=== PATIENT | male | born 1970 | race Hispanic/Latino ===

== ENCOUNTER 2021-03-14 21:14 | Emergency (ER) | payer OTHER ==
[~2021-03-14] VITALS: Ht 970.3 cm; Wt 23.1 kg
[2021-03-14] MEDS ORDERED: KETOROLAC 15MG/ML VIAL (15MG/ML) IV ONE (23:30)
[2021-03-14 23:38] LABS: BASOPHILS % (AUTO) 0.6 % (0.0-5.0); EOSINOPHILS % (AUTO) 2.2 % (0.0-8.0); HEMATOCRIT 36.4 % (42-54); LYMPHOCYTES % (AUTO) 23.8 % (21.0-51.0); MEAN CORPUSCULAR HEMOGLOBIN 28.2 pg (27.0-33.0); MEAN CORPUSCULAR HGB CONC 32.7 g/dL (32.0-36.0); MEAN CORPUSCULAR VOLUME 86.3 fL (79-99); MONOCYTES % (AUTO) 30.9 % (3.0-13.0); NEUTROPHILS % (AUTO) 42.5 % (40.0-77.0); PLATELET COUNT (AUTO) 45 K/uL (130-400); RED BLOOD CELL COUNT(AUTO) 4.22 MIL/uL (4.50-6.20); RED CELL DISTRIBUTION WIDTH 13.5 % (11.0-15.5); WHITE BLOOD COUNT (AUTO) 1.8 K/uL (4.8-10.8)
[2021-03-14 23:50] LABS: CREATININE 0.7 mg/dL (0.5-1.5)
[2021-03-14 23:52] LABS: ALBUMIN 3.1 g/dL (3.5-5.0); BILIRUBIN,TOTAL 0.5 mg/dL (0.2-1.0); TOTAL PROTEIN, SERUM 6.6 g/dL (6.0-8.3)
[2021-03-15 00:35] LABS: PLATELET MORPHOLOGY COMMENT MARKED DECREASE
[2021-03-15] MEDS ORDERED: ONDA4TAB4 PO (00:37)
[2021-03-15] MEDS ORDERED: FIORIT PO (00:37)
[2021-03-15 00:50] VITALS: BP 114/55
== END 2021-03-15 01:02 | disposition home or self-care (01) ==
LOC: EDH 21:14
DX: U07.1 COVID-19 (principal); Z79.1 Long term (current) use of non-steroidal anti-inflammatories (NSAID)
CPT/HCPCS: 36415; 70450; 80053; 82140; 85025; 87635; 96374; 99284; C9803; J1885